=== PATIENT | male | born 1970 | race Caucasian/White ===

== ENCOUNTER → 2019-08-06 14:43 | Outpatient (CLI) | payer MEDICAID, SELFPAY | PROVIDERS: PCP Family Medicine; Visit Provider Family Medicine | DX: R00.1 Bradycardia, unspecified (principal) | CPT/HCPCS: 93225; 93226 ==

== ENCOUNTER → 2019-12-07 08:41 | Outpatient (CLI) | payer OTHER, SELFPAY ==
--- NOTE | 2019-12-07 08:49 | US_ITS ---
PROCEDURE: US ABDOMEN LIMITED CLINICAL INDICATION: RUQ, DYSPEPSIA Right upper quadrant pain, heartburn COMPARISON: No exams were available for comparison FINDINGS: PANCREAS: Unremarkable. No obvious mass or abnormal fluid collection. No ductal dilatation LIVER: No focal liver lesions demonstrated. Homogeneous echogenicity. No intrahepatic biliary ductal dilatation evident. There is appropriate direction of blood flow within a non dilated portal vein RIGHT KIDNEY: Unremarkable. Normal size and echogenicity. No hydronephrosis GALLBLADDER: No gallstones, gallbladder wall thickening, pericholecystic fluid, or biliary dilatation. IMPRESSION: Unremarkable abdominal ultrasound Dictated by: Evan Stallworth MD 12/07/2019 10:39 Electronically signed by Evan Stallworth MD in [place] 12/07/2019 10:39
== END ==
PROVIDERS: PCP Family Medicine; Visit Provider Nurse Practitioner Family
DX: R10.11 Right upper quadrant pain (principal); R10.13 Epigastric pain
CPT/HCPCS: 76705

== ENCOUNTER → 2020-01-09 10:06 | Outpatient (CLI) | payer OTHER, SELFPAY ==
--- NOTE | 2020-01-09 10:11 | NM_ITS ---
PROCEDURE: NM HEPATOBILIARY W PHARM CLINICAL INDICATION: RUQ PAIN COMPARISON: No exams were available for comparison TECHNIQUE: DOSE: 8.1 millicurie technetium 99 M Choletec administration, 2 micrograms CCK. FINDINGS: Homogeneous activity is present within the hepatic parenchyma. Activity is present in the gallbladder by 10 minutes. Activity is present in the small bowel by 40 minutes. The gallbladder ejection fraction is calculated to be 32 percent. The patient reported mild right upper quadrant pain with CCK administration. IMPRESSION: No evidence of cholecystitis. Gallbladder dysfunction with abnormally low ejection fraction at 32 percent and elicitation of abdominal pain with CCK administration. Dictated by: Everardo Maher 01/09/2020 14:35 Electronically signed by Everardo Maher in [place] 01/09/2020 14:35
== END ==
PROVIDERS: PCP Family Medicine; Visit Provider Family Medicine
DX: R10.11 Right upper quadrant pain (principal)
CPT/HCPCS: 78227; A9537; J2805

== ENCOUNTER → 2020-03-24 07:46 | Outpatient (CLI) | payer OTHER, SELFPAY ==
[2020-03-24 09:12] LABS: Basophils # 0.1 K/mm3 (0-0.2); Basophils % 0.9 % (0.1-2.0); Eosinophils # 0.2 K/mm3 (0.0-0.4); Eosinophils % 2.6 % (0.1-12.0); Hemoglobin 13.4 g/dL (14.1-18.0); Lymphocytes # 3.2 K/mm3 (0.7-4.5); Lymphocytes % 43.9 % (10-50); Mean Corpuscular HGB Conc 33.6 g/dL (31.8-35.4); Mean Corpuscular Hemoglobin 30.1 pg (27.0-31.2); Mean Corpuscular Volume 89.6 fl (80-94); Mean Platelet Volume 9.4 fl (7.4-10.4); Monocytes # 0.4 K/mm3 (0.1-1.0); Monocytes % 4.9 % (1.7-9.3); Neutrophils # 3.4 K/mm3 (1.8-7.8); Neutrophils % 47.8 % (37.0-80.0); Platelet Count 169 K/mm3 (142-424); Red Blood Count 4.47 M/mm3 (4.60-6.20); Red Cell Distribution Width 12.8 % (11.5-17.5); White Blood Count 7.2 K/mm3 (4.8-10.8)
[2020-03-24 10:40] LABS: Alanine Aminotransferase 28 U/L (12-78); Albumin Level 4.4 g/dl (3.5-5.0); Albumin/Globulin Ratio 1.4 (1.1-1.8); Alkaline Phosphatase 65 U/L (38-126); Anion Gap 7.7 mEq/L (5-15); Aspartate Amino Transferase 30 U/L (17-59); Bilirubin,Total 0.4 mg/dl (0.2-1.3); Blood Urea Nitrogen 19 mg/dl (9-20); Calcium 9.3 mg/dl (8.4-10.2); Carbon Dioxide 30 mmol/L (22.0-30.0); Chloride 102 mmol/L (98-107); Estimated Glomerular Filt Rate 79 ml/min (>60); GFR (African American) 96 ML/MIN (>60); Globulin 3.1 g/dL (1.3-3.2); Glucose 99 mg/dl (74-100); Potassium 4.7 mmoL/L (3.5-5.1); Sodium 135 mmol/L (136-145); Total Protein,Serum 7.5 g/dl (6.3-8.2)
[2020-03-25 08:54] LABS: Covid-19 Nasal PCR Sendout Lex NOT DETECTED
--- NOTE | 2020-03-25 10:00 | PC.NURSE ---
0953-pt and Benito RN notifed of negative COVID 19 results.
== END ==
PROVIDERS: Visit Provider Surgery
DX: K82.9 Disease of gallbladder, unspecified (principal); Z03.818 Encounter for observation for suspected exposure to other biological agents ruled out
CPT/HCPCS: 36415; 80053; 85025; U0003

== ENCOUNTER 2020-03-26 06:06 | Day surgery (SDC) | payer OTHER, SELFPAY ==
--- NOTE | 2020-03-21 14:21 | SUR.PREOP ---
03/21/20 @ 1421---PHONE CALL MADE TO PATIENT. PATIENT UNDERSTANDS THAT LAB WORK AND COVID-19 TESTING NEEDS TO BE COMPLETED ON 03/24/20 BEFORE 12PM. PATIENT UNDERSTANDS IF LAB WORK AND COVID-19 TESTS ARE NOT COMPLETED BY 12PM ON THAT DATE, THE SURGERY SCHEDULED WILL BE CANCELLED AND RESCHEDULED FOR ANOTHER TIME.
[2020-03-25 08:48] VITALS: BMI 33.9
[2020-03-26] VITALS (13 sets, daily range): BP systolic 89–129; BP diastolic 51–79; PULSE 49–63; RESP 12–18; TEMP 36.2–43; O2SAT 94–99
--- NOTE | 2020-03-26 07:44 | P.PN_ITS ---
[facility] Anesthesia Checklist - Structural Data Admitted From: Home Planned Operative Procedure/s: tramaine stovall Consent for Planned Operative Procedure(s) Verified: Yes - Additional verifications Anesthesia Reactions: No Hx Blood Transfusions: No Blood Transfusion Reaction: No - Airway Assessment C-Spine Mobility Assessed: Yes TMJ Mobility Assessed: Yes Dentition: Good Dentition - Neurological Assessment Level of Consciousness: Awake, Alert, Appropriate - Anesthesia Plan Anesthesia Risk discussed: Yes Anesthesia Plan: Verified ASA Class: I Anesthesia Type: General [facility] History I have reviewed the patient's past medical history: Yes 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 No: Pacemaker Amputation: No Fractures: No - *Social History Educational Level: Completed GED/General Educational Development Smoking Status: Never smoker Alcohol Intake: current Alcohol Intake Frequency:: a few times a month Substance Use Type: denies use *Occupational Status:: employed Housing: house Household Members: spouse *Travel in the last 8 weeks: None Family Hx:: No significant family history
--- NOTE | 2020-03-26 08:20 | HMH.OPNOTE ---
Date of procedure: 03/26/20 Pre-op Diagnosis:: Gallbladder disease Post-op Diagnosis:: Same Procedure performed:: Laparoscopic cholecystectomy Surgeon:: Isauro Sewell MD PRINCIPAL CONSULTING ENGINEER:: Davis Mittal Anesthesia: GETA Estimated blood loss (mL): 15 Clinical Note:: Patient is a 49-year-old white male referred by Dr. Judge for gallbladder. He states that he has had some symptoms for approximately 2 years. He describes pain in the right thoracoabdominal area. It is occasionally sharp. It is quite uncomfortable and significant when he has an attack . He did undergo cardiac work-up which was unremarkable. The symptoms have often occurred sporadically. They have also occurred postprandially. He states that foods such as iced mocha and birthday cake from the supermarket have been quite severe. He has had some postprandial diarrhea. The attacks have been more frequent. He states that over the holidays he was talking with his cousin who had similar symptoms and had significant gallbladder issue. Patient underwent ultrasound which was negative for gallstones. He recently had HIDA scan which revealed diminished ejection fraction of 32% with CCK. He had exact severe reproduction of his symptoms with CCK injection. He was sent for surgical consultation. Certainly his symptoms given the nature and character as well as the findings on HIDA scan and correlation of symptoms to CCK injection are likely from his gallbladder. I discussed the options with the patient. He would like to pursue cholecystectomy. Of note, the patient does state that he had been taking prescription antacids but this caused constipation. He had tried [id number] Rolaids for which he was taken a significant amount and noticed no appreciable relief. Operative findings:: Thickened gallbladder Operative note:: Patient was taken to the operating room. He was given preoperative intravenous antibiotics. In the operating room he was placed in a supine position. General anesthesia was induced via endotracheal tube. His abdomen was prepped and draped in the standard surgical fashion. Subumbilical skin incision was made and dissection was carried down to the fascia which was rather deep. While performing abdominal wall lift Veress needle was inserted and CO2 pneumoperitoneum was achieved to 15 mmHg. 11 mm optical trocar was inserted at the umbilicus. Patient was positioned in reverse Trendelenburg left side down. A couple of 5 mm trochars were inserted in the right upper abdomen. 10 mm trocar was inserted in the epigastrium. Gallbladder was grasped retracted anteriorly and superiorly over the dome of the liver. Gallbladder appeared to be thickened. There was some fatty infiltration around the gallbladder. Blunt dissection was carried out at the neck of the gallbladder bluntly incising the visceral peritoneum. Blunt dissection was carried out identifying the cystic duct and cystic artery. Cystic duct was isolated, multiply clipped, and divided. Cystic artery was carefully coagulated with FREDDY ultrasonic harmonic danny and divided. The gallbladder was dissected free from the liver in a retrograde fashion using FREDDY ultrasonic harmonic danny. There was a small amount of unavoidable spillage of bile during the dissection process which was suctioned free. Gallbladder was placed within an Endo Catch retrieval device and removed from the peritoneal cavity via the umbilical trocar site. Gallbladder fossa and perihepatic space were irrigated and aspirated until clear. There appeared to be good hemostasis. Trochars were removed as CO2 pneumoperitoneum was evacuated. Fascia at the umbilicus was closed with a couple of 0 Vicryl sutures. Local anesthetic was infiltrated. Skin incisions were closed with 4-0 Monocryl in a subcuticular fashion. Steri-Strips and dressings were applied. Condition: stable Disposition: PACU Complications:: None immediately apparent
--- NOTE | 2020-03-26 08:29 | HMH.ANESI ---
[facility] Anesthesia Record Part I Intake, IV Amount: 1,500 Estimated blood loss (mL): 0 Urine output (mL): 0 Blood Pressure: 128/79 SaO2: 94 Pulse Rate: 61 Respiratory Rate: 12 Temperature: 98.6 F Patient is:: Drowsy, Stable Stable to PACU at:: 08:25
--- NOTE | 2020-03-27 10:39 | P.PN_ITS ---
[facility] Anesthesia Record Part II Discharge Time: 08:55 Destination: [facility] PACU nurse assessment reviewed?: Yes Patient Condition:: Good Anesthesia Complications:: None Swallowing reflex intact?: Yes Cyanosis?: No Blood Pressure: 89/55 Pulse Rate: 63 Temperature: 97.8 F Mental Status: Alert & Oriented Pain level:: 0 Nausea and/or vomitting:: None Intake, IV Amount: 1,500
[2020-03-27 10:41] VITALS: BP 89/55; PULSE 63; TEMP 36.6
== END 2020-03-26 09:35 | disposition home or self-care (01) ==
LOC: OR 06:07
PROVIDERS: PCP Family Medicine; Visit Provider Surgery
PROC: 0FT44ZZ Resection of Gallbladder, Percutaneous Endoscopic Approach (ICD-10-PCS; CPT 47562; principal; 2020-03-26 07:30)
DX: K82.9 Disease of gallbladder, unspecified (principal)
CPT/HCPCS: 47562; 96374; J0131; J2405; J2710

== ENCOUNTER 2021-06-12 21:34 | Emergency (ER) | payer OTHER, SELFPAY ==
[2021-06-12 21:35] VITALS: BP 110/67; PULSE 60; RESP 18; TEMP 36.7; O2SAT 98; BMI 31.3
[2021-06-12 22:00] LABS: Microscopic, Urine URINE MICROSCOPIC (MICROSCOPIC)
[2021-06-12 22:01] LABS: Appearance,Urine CLEAR (Clear); Bilirubin,Urine Negative (Negative); Blood, Urine Negative (Negative); Color,Urine YELLOW (Yellow); Glucose,Urine (UA) Negative (Negative); Ketones,Urine Negative (Negative); Leukocyte Esterase,Urine Negative (Negative); Nitrate,Urine Negative (Negative); Protein,Urine Negative (Negative)
--- NOTE | 2021-06-12 22:01 | CT_ITS ---
PROCEDURE INFORMATION: Exam: CT Abdomen And Pelvis With Contrast Exam date and time: 06/12/2021 10:01 PM Age: 51 years old Clinical indication: Abdominal pain; Prior surgery; Surgery date: 6+ months; Surgery type: Gallbladder; Patient HX: Epigastric pain for 2 hrs with some nausea; Additional info: Abd pain TECHNIQUE: Imaging protocol: Computed tomography of the abdomen and pelvis with contrast. Radiation optimization: All CT scans at this facility use at least one of these dose optimization techniques: automated exposure control; mA and/or kV adjustment per patient size (includes targeted exams where dose is matched to clinical indication); or iterative reconstruction. Contrast material: ISOVUE; Contrast volume: 75 ml; Contrast route: IV; COMPARISON: US ABDOMEN LIMITED 12/07/2019 8:57 AM FINDINGS: Liver: Well-circumscribed or mm hypoattenuating focus in the right hepatic lobe, image 20 series 3 too small to otherwise classify but likely related to cyst or hemangioma. Gallbladder and bile ducts: The patient is status post cholecystectomy. Pancreas: No acute findings, focal abnormality or ductal dilation. Spleen: No splenomegaly or focal abnormality. Adrenal glands: Normal. No mass. Kidneys and ureters: Simple appearing 1.7 cm right renal cyst and nonenhancing 9 mm cyst for which no further follow-up should be necessary. Kidneys enhance and excrete contrast normally. No obstructive uropathy. Stomach and bowel: No pathologically dilated loops of bowel.There are several proximal and mid small bowel loops with diffuse wall thickening versus simple nondistention. Appendix: No evidence of appendicitis. Intraperitoneal space: No free air. No significant fluid collection. Vasculature: No abdominal aortic aneurysm. Lymph nodes: There are multiple nonspecific nonpathologic but prominent lymph nodes in the mesentery. There are no mesenteric lymph nodes of pathologic dimensions. Urinary bladder: Unremarkable as visualized. Reproductive: Unremarkable as visualized. Bones/joints: No acute fracture. Soft tissues: No acute findings. IMPRESSION: 1. Proximal and mid small bowel loops with diffuse wall thickening versus simple nondistention. Correlate for possible enteritis. 2. Otherwise no acute findings in the abdomen pelvis. COMMENTS: Consistent with the [place]'s Incidental Findings Committee white paper (J Am Brandon Radiol 2018): Any incidental renal lesion less than 1 cm or classified as too small to characterize, or any incidental cystic renal lesion characterized as simple-appearing, is likely benign. No follow-up imaging is recommended for these lesions per consensus recommendations based on imaging criteria.
--- NOTE | 2021-06-12 22:02 | ECG_ITS ---
APPROVED REPORT Exam: Resting ECG HR:50 bpm ECG Measurements Heart Rate 50 AXES IN 148 P 41 QRSd 92 QRS 30 QT 470 T 57 QTc 428 Conclusion Sinus bradycardia Otherwise normal ECG Electronically signed by : Ang Terrazas, 06/13/2021 15:16:43
[2021-06-12 22:03] LABS: Basophils # 0.1 K/mm3 (0-0.2); Basophils % 0.6 % (0.1-2.0); Eosinophils # 0.3 K/mm3 (0.0-0.4); Eosinophils % 2.5 % (0.1-12.0); Hematocrit 40.6 % (42.0-52.0); Hemoglobin 13.7 g/dL (14.1-18.0); Lymphocytes # 4.7 K/mm3 (0.7-4.5); Lymphocytes % 47.6 % (10-50); Mean Corpuscular HGB Conc 33.7 g/dL (31.8-35.4); Mean Corpuscular Hemoglobin 30.1 pg (27.0-31.2); Mean Corpuscular Volume 89.4 fl (80-94); Monocytes # 0.5 K/mm3 (0.1-1.0); Monocytes % 4.7 % (1.7-9.3); Neutrophils # 4.4 K/mm3 (1.8-7.8); Neutrophils % 44.7 % (37.0-80.0); Platelet Count 195 K/mm3 (142-424); Red Blood Count 4.54 M/mm3 (4.60-6.20); Red Cell Distribution Width 13.7 % (11.5-17.5); White Blood Count 9.9 K/mm3 (4.8-10.8)
[2021-06-12 22:07] LABS: Squamous Epithelial Cell,Urine Occasional #/hpf (0-5); WBC,Urine Occasional #/hpf (0-3)
--- NOTE | 2021-06-12 22:07 | HMH.EDNVD ---
ED Disposition Clinical Impression: Abdominal pain Qualifiers: Abdominal location: epigastric Qualified Code(s): R10.13 - Epigastric pain Disposition: Home, Self-Care Condition on Discharge: Good Instructions: DI for Acute Abdominal Pain Additional Instructions: see pcp for follow up and recheck if any issues Referrals: Ang Judge MD [Primary Care Provider] - - Critical Care Critical Care Time: No Attestation: On 06/12/21, the high probability of a clinically significant, sudden or life threatening deterioration of the following system(s) required my full and direct attention, intervention and personal management. The time I documented below is in addition to time spent performing reported procedures but includes the following listed in this critical care notation. Medical Decision Making - Medical Records Medical records reviewed: Yes: I reviewed the patient's medical records. - Italo Inquiry Pt receiving controlled substance: No Vital Signs: 06/12/21 21:35 06/12/21 23:06 Temperature 98.1 F Temperature Source Oral Pulse Rate 52 L Pulse Rate [Right] 60 Respiratory Rate 18 16 Blood Pressure 118/70 Blood Pressure [Right Arm] 110/67 Blood Pressure Mean [Right Arm] 81 Blood Pressure Source Manual Cuff/ Doppler 02 Sat by Pulse Oximetry 98 98 - Lab Data Lab results reviewed: Yes: I reviewed the patient's lab results. Lab Results 06/12/21 21:45: Urine Color Yellow, Urine Appearance Clear, Urine pH 7.0, Ur Specific Lisco 1.020, Urine Protein Negative, Urine Glucose (UA) Negative, Urine Ketones Negative, Urine Blood Negative, Urine Nitrate Negative, Urine Bilirubin Negative, Urine Urobilinogen 1.0, Ur Leukocyte Esterase Negative, Urine RBC None, Urine WBC Occasional, Ur Squamous Epith Cells Occasional, Urine Bacteria None 06/12/21 21:45: WBC 9.9, RBC 4.54 L, Hgb 13.7 L, Hct 40.6 L, MCV 89.4, MCH 30.1, MCHC 33.7, RDW 13.7, Plt Count 195, MPV 9.0, Neut % (Auto) 44.7, Lymph % (Auto) 47.6, Rowan % (Auto) 4.7, Eos % (Auto) 2.5, Baso % (Auto) 0.6, Neut # (Auto) 4.4, Lymph # (Auto) 4.7 H, Rowan # (Auto) 0.5, Eos # (Auto) 0.3, Baso # (Auto) 0.1, ESR 19 H 06/12/21 21:45: Sodium 141, Potassium 3.9, Chloride 104, Carbon Dioxide 30, Anion Gap 10.9, BUN 15, Creatinine 0.90, Estimated Creat Clear 126, Estimated GFR 89, Est GFR ( Amer) 108, Glucose 97, Calcium 8.7, Total Bilirubin 0.4, AST 41, ALT 37, Alkaline Phosphatase 79, Troponin I < 0.01, C-Reactive Protein 7.2 H, Total Protein 7.6, Albumin 4.2, Globulin 3.4 H, Albumin/Globulin Ratio 1.2, Amylase 102, Lipase 276, Procalcitonin 0.045 06/13/21 00:00: Troponin I < 0.01 Result diagrams: 06/12/21 21:45 06/12/21 21:45 Orders (Tests/Meds): ED MEDICATIONS Generic Name Dose Route Start Last Admin Trade Name Freq PRN Reason Stop Dose Admin Sodium Chloride 1,000 mls @ 999 mls/hr 06/12/21 22:00 06/12/21 21:56 Sod Chlor 0.9% 1000ml Bag IV 06/12/21 23:00 999 mls/hr .Q1H1M MICHELLE Administration Sodium Chloride 8 ml 06/12/21 21:53 Sodium Chloride 0.9% 10ml Vial IV 07/12/21 21:52 NEEDED PRN dilute pepcid Discontinued Medications Generic Name Dose Route Start Last Admin Trade Name Freq PRN Reason Stop Dose Admin Famotidine 20 mg 06/12/21 21:53 06/12/21 21:56 Famotidine 20mg/2ml Vial IV 06/12/21 21:54 20 mg ONCE ONE Administration Iopamidol 75 ml 06/12/21 22:47 06/12/21 22:48 Iopamidol-370 (76%);100ml Bottle IV 06/12/21 22:48 75 ml ONCE ONE Administration Ketorolac Tromethamine 30 mg 06/12/21 21:53 06/12/21 21:56 Ketorolac 30mg/Ml Vial IV 06/12/21 21:54 30 mg ONCE ONE Administration Metoclopramide HCl 10 mg 06/12/21 21:53 07/23/21 21:56 Metoclopramide Hcl 10mg/2ml Vial IVP 06/12/21 21:54 10 mg ONCE ONE Administration Ondansetron HCl 4 mg 06/12/21 21:53 06/12/21 21:56 Ondansetron 4mg/2ml Vial IV 06/12/21 21:54 4 mg ONCE ONE Administration Sodium Chloride 10 ml 07
--- NOTE | 2021-06-12 22:09 | XR_ITS ---
PROCEDURE INFORMATION: Exam: XR Chest Exam date and time: 06/12/2021 10:09 PM Age: 51 years old Clinical indication: Patient HX: Epigastric pain, nonsmoker; Additional info: Abd pain TECHNIQUE: Imaging protocol: XR of the chest. Views: 2 views. COMPARISON: CR CXR1 CHEST-PORTABLE 01/06/2016 8:40 PM FINDINGS: Lungs: No acute findings or consolidation. Pleural spaces: No pleural effusion. No pneumothorax. Heart/Mediastinum: No acute findings or cardiomegaly. Bones/joints: No acute findings. IMPRESSION: No acute cardiopulmonary findings.
[2021-06-12 22:12] LABS: Alanine Aminotransferase 37 U/L (12-78); Albumin Level 4.2 g/dl (3.5-5.0); Albumin/Globulin Ratio 1.2 (1.1-1.8); Alkaline Phosphatase 79 U/L (38-126); Amylase 102 U/L (30-110); Anion Gap 10.9 mEq/L (5-15); Aspartate Amino Transferase 41 U/L (17-59); Bilirubin,Total 0.4 mg/dl (0.2-1.3); Blood Urea Nitrogen 15 mg/dl (9-20); Calcium 8.7 mg/dl (8.4-10.2); Carbon Dioxide 30 mmol/L (22.0-30.0); Chloride 104 mmol/L (98-107); Creatinine Clearance Estimated 126 mL/min (50-200); Estimated Glomerular Filt Rate 89 ml/min (>60); GFR (African American) 108 ML/MIN (>60); Globulin 3.4 g/dL (1.3-3.2); Glucose 97 mg/dl (74-100); Lipase 276 U/L (23-300); Potassium 3.9 mmoL/L (3.5-5.1); Sodium 141 mmol/L (136-145); Total Protein,Serum 7.6 g/dl (6.3-8.2)
[2021-06-12 22:17] LABS: C-Reactive Protein 7.2 mg/L (0-4)
[2021-06-12 22:26] LABS: Troponin I < 0.01 ng/ml (0.00-0.034)
[2021-06-12 22:27] LABS: Erythrocyte Sedimentation Rate 19 mm/hr (0-15)
[2021-06-12 22:31] LABS: Procalcitonin 0.045 ng/mL (0.0-2.0)
[2021-06-12 23:06] VITALS: BP 118/70; PULSE 52; RESP 16; O2SAT 98
[2021-06-13 00:36] LABS: Troponin I < 0.01 ng/ml (0.00-0.034)
[2021-06-13 00:54] VITALS: BP 126/72; PULSE 61; RESP 18; TEMP 36.9; O2SAT 98
== END 2021-06-13 00:57 | disposition home or self-care (01) ==
PROVIDERS: Emergency Provider Emergency Medicine; PCP Family Medicine
DX: R10.13 Epigastric pain (principal); R11.0 Nausea
CPT/HCPCS: 71046; 74177; 80053; 81001; 82150; 83690; 84145; 84484; 85025; 85651; 86140; 93005; 96365; 96375; 99283; J2405; Q9967

== ENCOUNTER 2022-08-17 17:17 | Day surgery (SDC) | payer OTHER, SELFPAY ==
[2022-08-17] VITALS (20 sets, daily range): BP systolic 95–132; BP diastolic 58–81; PULSE 46–66; RESP 12–20; TEMP 36.1–43; O2SAT 95–100; BMI 31.3
--- NOTE | 2022-08-17 18:02 | CT_ITS ---
PROCEDURE INFORMATION: Exam: CT Abdomen And Pelvis With Contrast Exam date and time: 08/17/2022 6:02 PM Age: 52 years old Clinical indication: Abdominal pain; Localized; Right lower quadrant (rlq); Additional info: Right lower abdominal pain TECHNIQUE: Imaging protocol: Computed tomography of the abdomen and pelvis with contrast. Radiation optimization: All CT scans at this facility use at least one of these dose optimization techniques: automated exposure control; mA and/or kV adjustment per patient size (includes targeted exams where dose is matched to clinical indication); or iterative reconstruction. Contrast material: ISOVUE; Contrast volume: 75 ml; Contrast route: IV; COMPARISON: CT ABDOMEN PELVIS W CON 06/12/2021 10:23 PM FINDINGS: Lungs: No acute findings in the visualized lower lungs. No consolidation. Liver: A tiny 5 mm chronic hypoattenuating posterior right liver lesion series 3, image 21, no change compared with 06/12/2021 series 3, image 20, most likely cyst, but too small to accurately characterize. No suspicious mass. No hepatomegaly. Gallbladder and bile ducts: Cholecystectomy clips. No biliary dilatation. Pancreas: The pancreas is normal. Spleen: The spleen is normal. Adrenal glands: The adrenal glands are normal. Kidneys and ureters: Approximate 1.9 cm posterior-upper right renal cortical cystic lesion with HU density of 11, and simple Bosniak 1 appearance. Some other possible smaller subcentimeter likely cystic lesions too small to accurately characterize. No suspicious solid mass requiring follow-up. No hydronephrosis, hydroureter, or calcified obstructing ureteral stones. Stomach and bowel: No acute findings in the stomach.There is no evidence of intestinal perforation or obstruction. There are some fluid-filled distal small bowel loops with scattered air-fluid levels, but no dilated loops or mucosal thickening. Minimal diverticulosis coli, no CT findings of acute diverticulitis. Appendix: Thickened, edematous appearance of the appendix. Proximal appendix measures over 11 mm diameter series 3, image 73 with slightly thickened edematous appearing wall. Minimal periappendiceal soft tissue stranding. See coronal images 30-36. No periappendiceal fluid collection or extraluminal gas bubbles. No calcified appendicolith. Findings suspicious for early acute appendicitis. Intraperitoneal space: There is no free intraperitoneal air. There is no significant free intraperitoneal fluid. Vasculature: There is no aortic aneurysm. No portal venous gas. Lymph nodes: No significantly enlarged lymph nodes by short axis criteria. Urinary bladder: The bladder is normal. Reproductive: The prostate and seminal vesicles are normal. Bones/joints: There are spinal degenerative changes, with multilevel disc narrrowing and spondylosis. Some bridging anterior syndesmophytes in the lower thoracic spine. Mild lower lumbar facet arthropathy. No acute appearing fracture or high-grade listhesis, as visualized. Mild hip degenerative changes. Soft tissues: There are no soft tissue masses or fluid collections. IMPRESSION: 1. Findings suspicious for acute appendicitis. Mildly swollen edematous-appearing appendix up to 11 mm diameter with slight periappendiceal soft tissue stranding. No periappendiceal fluid collection or extraluminal gas bubbles. 2. Distal small intestinal air-fluid levels, which could be slight ileus or enteritis.There is no evidence of intestinal perforation or obstruction. 3. Additional nonemergency and chronic findings as above, including simple appearing renal cortical cystic lesions requiring no follow-up per ACR g
[2022-08-17 18:04] LABS: Chloride 98 mmol/L (98-107); Potassium 4.4 mmoL/L (3.5-5.1); Sodium 139 mmol/L (136-145)
[2022-08-17 18:06] LABS: Blood Urea Nitrogen 12 mg/dl (9-20); Creatinine Clearance Estimated 128 mL/min (50-200); Estimated Glomerular Filt Rate 89 ml/min (>60); GFR (African American) 108 ML/MIN (>60)
[2022-08-17 18:07] LABS: Alanine Aminotransferase 30 U/L (12-78); Albumin Level 4.6 g/dl (3.5-5.0); Albumin/Globulin Ratio 1.2 (1.1-1.8); Alkaline Phosphatase 64 U/L (38-126); Anion Gap 15.4 mEq/L (5-15); Aspartate Amino Transferase 42 U/L (17-59); Basophils # 0.1 K/mm3 (0-0.2); Bilirubin,Total 0.4 mg/dl (0.2-1.3); Carbon Dioxide 30 mmol/L (22.0-30.0); Eosinophils # 0.2 K/mm3 (0.0-0.4); Globulin 3.8 g/dL (1.3-3.2); Glucose 89 mg/dl (74-100); Hematocrit 44.8 % (42.0-52.0); Hemoglobin 14.6 g/dL (14.1-18.0); Lymphocytes # 3.6 K/mm3 (0.7-4.5); Lymphocytes % 42.6 % (10-50); Mean Corpuscular HGB Conc 32.5 g/dL (31.8-35.4); Mean Corpuscular Hemoglobin 30.4 pg (27.0-31.2); Mean Corpuscular Volume 93.4 fl (80-94); Monocytes # 0.4 K/mm3 (0.1-1.0); Monocytes % 4.6 % (1.7-9.3); Neutrophils # 4.2 K/mm3 (1.8-7.8); Neutrophils % 49.8 % (37.0-80.0); Platelet Count 212 K/mm3 (142-424); Red Blood Count 4.79 M/mm3 (4.60-6.20); Red Cell Distribution Width 13.4 % (11.5-17.5); Total Protein,Serum 8.4 g/dl (6.3-8.2); White Blood Count 8.5 K/mm3 (4.8-10.8)
[2022-08-17 18:11] LABS: Lipase 96 U/L (23-300)
--- NOTE | 2022-08-17 18:24 | PC.NURSE ---
pt given urinal to collect urinal sample
--- NOTE | 2022-08-17 18:28 | HMH.EDABDPAI ---
Discharge Plan Disposition Patient Disposition: Still a Patient Condition: Fair Chief Complaint: Abdominal Pain Prescriptions Prescriptions: No Action peg 3350-electrolytes [Golytely] 236-22.74-6.74 -5.86 gram recon soln 240 ml PO Q10M Qty: 4000 0RF Rx Instructions: until fecal effluent is clear Referrals Follow up/Referrals: Maggie Lino MD [Primary Care Provider] - See instructions Clinical Impressions Clinical Impression: Acute appendicitis Instructions Patient Instructions: DI for Acute Abdominal Pain Discharge ED Provider: Elroy Garcia Abdominal Pain HPI General Chief Complaint: Abdominal Pain Stated Complaint: sent from [facility] for apendix Time Seen by Provider: 08/17/22 18:00 Mode of Arrival: Ambulatory Source of Information: Patient Limitations: No Limitations Description of Symptoms (Recalled from ER Triage Doc. by RN): c/o lower abd pain since Tuesday, denies n/v/d, nothing makes it better or worse History of Present Illness complaint: abdominal pain Onset (ago): day(s) (4) Consistency: constant Location: RLQ Severity: moderate Severity scale (1-10): 6 Quality: cramping and aching Radiation: none Migration to: no migration Relieving factors: nothing Exacerbating factors: nothing Associated symptoms: nausea Related Data Previous Rx's Medication Instructions Recorded peg 3350-electrolytes 236 240 ml PO Q10M #4,000 mL 07/06/22 gram-22.74 gram-6.74 gram-5.86 gram solution (Golytely) Allergies Allergy/AdvReac Type Severity Reaction Status Date / Time No Known Allergies Allergy Verified 06/12/21 22:08 [facility] Social History Smoking Status: Never smoker alcohol intake: never substance use type: denies use current occupational status: employed Travel in the last 8 weeks: None household members: spouse housing: house current occupation: [employer] current occupational exposures/hazards: No caffeine: Yes ROS Obtained: Yes All systems reviewed & no additional complaints except as documented Constitutional Constitutional: Denies chills, Denies fever(s) and Denies headache(s) ENT Ears, Nose, Mouth, and Throat: Denies headache(s) Cardiovascular Cardiovascular: Denies chest pain and Denies dyspnea Respiratory Respiratory: Denies dyspnea Gastrointestinal Gastrointestingal: Reports abdominal pain and nausea Integumentary/Breasts Skin/Breast: Denies rash Neurologic Neurologic: Denies headache(s) Physical Exam General General appearance: alert and in no apparent distress ENT ENT exam: Present normal exam and normal oropharynx Respiratory Respiratory exam: Present normal lung sounds bilaterally; Absent respiratory distress Cardiovascular Cardiovascular exam: Present regular rate and normal rhythm Abdominal Exam Abdominal exam: Present soft; Absent distention, guarding, rebound, rigidity or mass Abdominal tenderness: Present RLQ and moderate Extremities Exam Extremities exam: Present normal inspection and full ROM; Absent tenderness Neurological Exam Neurological exam: Present alert and oriented X3 Skin Skin exam: Present warm; Absent rash Medical Decision Making Medical Records Medical records reviewed: Yes I reviewed the patient's medical records. Italo Inquiry Pt receiving controlled substance: Yes Italo was queried for this patient: No Reason not queried -: Italo system downtime Risks and benefits of using a controlled substance: were discussed with pt by me Vital Signs: 08/17/22 17:18 08/17/22 18:24 08/17/22 18:30 Temperature 97.7 F Temperature Source Oral Pulse Rate 53 L 66 Pulse Rate [Left Radial] 47 L Respiratory Rate 20 18 Blood Pressure 122/76 132/75 Blood Pressure [Right Arm] 123/75 Blood Pressure Mean 87 86 Blood Pressure Mean [Right Arm] 91 Blood Pressure Source [Right Arm] Automatic Cuff Blood Pressure Position [Right Arm] S
--- NOTE | 2022-08-17 18:29 | PC.NURSE ---
URINE SENT TO LAB
[2022-08-17 18:32] LABS: Microscopic, Urine URINE MICROSCOPIC (MICROSCOPIC)
[2022-08-17 18:36] LABS: Appearance,Urine CLEAR (Clear); Bilirubin,Urine Negative (Negative); Blood, Urine Negative (Negative); Color,Urine YELLOW (Yellow); Glucose,Urine (UA) Negative (Negative); Ketones,Urine Negative (Negative); Leukocyte Esterase,Urine Negative (Negative); Nitrate,Urine Negative (Negative); Protein,Urine Negative (Negative); Urobilinogen,Urine 0.2 EU/dl (0.2)
[2022-08-17 18:52] LABS: WBC,Urine Occasional #/hpf (0-3)
--- NOTE | 2022-08-17 18:58 | PC.NURSE ---
called surgeon career education teacher
--- NOTE | 2022-08-17 19:00 | PC.NURSE ---
called house to get surgery team for for appendicitis
--- NOTE | 2022-08-17 19:06 | PC.NURSE ---
SPOKE WITH WILBUR CRAIG CRNA AT [address], DEVON MEREDITH, RN AT [address] AND ALISTAIR MEDRANO, MOTOR OPERATOR AT [address] TO NOTIFY OF ACUTE APPENDICITIS. INFORMED THEM DR. CROFT WANTS TO TAKE PATIENT TO SURGERY. BED ASSIGNMENT TO [facility].
--- NOTE | 2022-08-17 19:29 | PC.NURSE ---
at bedside speaking with pt
[2022-08-17 19:36] LABS: Coronavirus 19, PCR Not Detected (NotDetected); Influenza A, PCR Not Detected (NotDetected); Influenza B, PCR Not Detected (NotDetected)
--- NOTE | 2022-08-17 19:44 | PC.NURSE ---
pt to surgery
--- NOTE | 2022-08-17 20:29 | EXP.ANES.CKL ---
[facility] Social History Smoking Status: Never smoker alcohol intake: never substance use type: denies use current occupational status: employed Travel in the last 8 weeks: None household members: spouse housing: house current occupation: [employer] current occupational exposures/hazards: No caffeine: Yes [facility] Anesthesia Checklist Patient Identification Patient Identification: Arm Band Structural Data Admitted From: Emergency Dept Planned Operative Procedure/s: Laparoscopic Appendectomy Consent for Planned Operative Procedure(s) Verified: Yes Verified Documents: Surgical Consent and History and Physical NPO Status Verified Time NPO: 16:00 (1600- clear liquids, a few carrots at 1400) Additional verifications Anesthesia Reactions: No Hx Blood Transfusions: No Blood Transfusion Reaction: No Airway Assessment C-Spine Mobility Assessed: Yes TMJ Mobility Assessed: Yes Dentition: Good Dentition Neurological Assessment Level of Consciousness: Awake and Alert Anesthesia Plan Anesthesia Risk discussed: Yes Anesthesia Plan: Verified ASA Class: II (e) Anesthesia Type: General
--- NOTE | 2022-08-17 21:16 | P.PNANES_ITS ---
[facility] Anesthesia Record Part I Anesthesia Record I Intake, IV Amount: 1,100 Estimated blood loss (mL): 10 Urine output (mL): 200 Blood Products used (#): none Blood Pressure: 126/60 SaO2: 96 Pulse Rate: 52 Respiratory Rate: 16 Temperature: 97.8 F Patient is:: Drowsy and Stable Stable to PACU at:: 21:10
--- NOTE | 2022-08-17 22:10 | EXP.OP.NOTE ---
Date of procedure: 08/17/22 Pre-op Diagnosis:: Appendicitis Post-op Diagnosis:: same Procedure performed:: Laparoscopic appendectomy Surgeon:: Pradeep Mishra MD BILLBOARD POSTER HELPER:: Neil Beard Anesthesia: RAND Estimated blood loss (mL): 15 Operative findings:: inflammed, enlarged appendix Operative note:: After informed consent was obtained, the patient was taken to the operating room and placed in the supine position. General anesthesia was induced and the abdomen was prepped and draped in a sterile fashion. After infiltration with local anesthetic a supraumbilical incision was made. A Veress needle was placed in position. The abdomen was insufflated. A 12 mm optical trocar was placed in position. Under direct visualization, a 5 mm trocar was placed in the suprapubic position and an additional 5 mm trocar was placed in the left lower quadrant. The appendix was inflammed and enlarged (paticularly along the proximal and mid-portion). As the appendix was elevated the mesoappendix was dissected with harmonic danny. An Endopath 45 stapling device was then used to transect the appendix at its base. The appendix was placed in a retrieval bag and removed through the supraumbilical trocar site. The right lower quadrant and pelvis were thoroughly irrigated. No active bleeding or sign of injury was noted. Fascia at the supraumbilical trocar site was reapproximated utilizing the NeoClose device. The remaining trocars were removed. All wounds were irrigated and skin was closed with 4-0 Monocryl in a mattress fashion to facilitate hemostasis. Dressings were applied. The patient's anesthetic agents were reversed and extubation was completed prior to transfer to recovery in stable condition. Condition: stable Disposition: PACU Specimens:: appendix Complications:: no immediate
[2022-08-17 23:26] LABS: Microscopic,Cath URINE MICROSCOPIC (MICROSCOPIC)
[2022-08-17 23:27] LABS: Appearance,Urine/Cath CLEAR (Clear); Bilirubin,Cath Negative (Negative); Blood, Urine/Cath Negative (Negative); Color,Urine/Cath YELLOW (Yellow); Glucose,Urine/Cath (UA) Negative (Negative); Ketones,Urine/Cath Negative (Negative); Leukocyte Esterase,Cath Negative (Negative); Nitrate,Cath Negative (Negative); Protein,Urine/Cath Negative (Negative); Specific Gravity, Urine/Cath <= 1.005 (1.005-1.030); Urobilinogen,Cath 0.2 EU/dl (0.2)
[2022-08-18 00:04] LABS: Squamous Epithelial Ur./Cath Occasional #/hpf (0-5); WBC,Urine/Cath Occasional #/hpf (0-3)
--- NOTE | 2022-08-18 06:38 | SUR.PHASEII ---
LATE ENTRY 2239 education give to patient and regarding tylenol 3 instructions. pt and spouse informed to stop this medication when loratab from pharmacy has been picked up related to the amount of tylenol being too much if taking both. pt and spouse verbalized understanding of all education.
--- NOTE | 2022-08-18 10:17 | P.PNANES_ITS ---
[facility] Anesthesia Record Part II Anesthesia Record Part II Discharge Time: 22:14 Destination: Surgical Day Care (OP Surgery) PACU nurse assessment reviewed?: Yes Patient Condition:: Good Anesthesia Complications:: None Swallowing reflex intact?: Yes Cyanosis?: No Blood Pressure: 103/69 Pulse Rate: 46 Temperature: 97 F Mental Status: Alert & Oriented Pain level:: 3 Nausea and/or vomitting:: None Intake, IV Amount: 0
[2022-08-18 10:18] VITALS: BP 103/69; PULSE 46; TEMP 36.1
== END 2022-08-17 22:45 | disposition home or self-care (01) ==
LOC: ER 19:02 → SDC 19:45 → 2ND 19:57 → SDC 22:10
PROVIDERS: Emergency Provider Emergency Medicine; PCP Family Medicine; Visit Provider Surgery
PROC: 0DTJ4ZZ Resection of Appendix, Percutaneous Endoscopic Approach (ICD-10-PCS; CPT 44970; principal; 2022-08-17 20:00)
DX: K37 Unspecified appendicitis (principal)
CPT/HCPCS: 44970; 74177; 80053; 81001; 83690; 85025; 88304; 96374; C9803; J0696; J2405; J2710; Q9967; U0003; U0005

== ENCOUNTER → 2022-08-25 15:16 | Outpatient (CLI) | payer OTHER, SELFPAY ==
[2022-08-25 15:21] LABS: Microscopic, Urine URINE MICROSCOPIC (MICROSCOPIC)
[2022-08-25 15:52] LABS: Basophils # 0.1 K/mm3 (0-0.2); Basophils % 1.1 % (0.1-2.0); Eosinophils # 0.1 K/mm3 (0.0-0.4); Eosinophils % 1.4 % (0.1-12.0); Hemoglobin 13.8 g/dL (14.1-18.0); Lymphocytes # 3.5 K/mm3 (0.7-4.5); Lymphocytes % 38.1 % (10-50); Mean Corpuscular HGB Conc 33.5 g/dL (31.8-35.4); Mean Corpuscular Hemoglobin 30.9 pg (27.0-31.2); Mean Corpuscular Volume 92.3 fl (80-94); Mean Platelet Volume 8.9 fl (7.4-10.4); Monocytes # 0.5 K/mm3 (0.1-1.0); Monocytes % 5.4 % (1.7-9.3); Neutrophils # 4.9 K/mm3 (1.8-7.8); Platelet Count 216 K/mm3 (142-424); Red Blood Count 4.45 M/mm3 (4.60-6.20); Red Cell Distribution Width 13.1 % (11.5-17.5); White Blood Count 9.1 K/mm3 (4.8-10.8)
[2022-08-25 15:57] LABS: Appearance,Urine CLEAR (Clear); Bilirubin,Urine Negative (Negative); Blood, Urine Negative (Negative); Color,Urine YELLOW (Yellow); Glucose,Urine (UA) Negative (Negative); Ketones,Urine Negative (Negative); Leukocyte Esterase,Urine Negative (Negative); Nitrate,Urine Negative (Negative); Protein,Urine Negative (Negative); Urobilinogen,Urine 0.2 EU/dl (0.2)
[2022-08-25 16:16] LABS: Squamous Epithelial Cell,Urine Occasional #/hpf (0-5)
[2022-08-25 16:55] LABS: Chloride 97 mmol/L (98-107); Potassium 4.8 mmoL/L (3.5-5.1); Sodium 139 mmol/L (136-145)
[2022-08-25 16:58] LABS: Alanine Aminotransferase 28 U/L (12-78); Albumin Level 4.4 g/dl (3.5-5.0); Albumin/Globulin Ratio 1.3 (1.1-1.8); Alkaline Phosphatase 76 U/L (38-126); Amylase 79 U/L (30-110); Anion Gap 15.8 mEq/L (5-15); Aspartate Amino Transferase 33 U/L (17-59); Blood Urea Nitrogen 12 mg/dl (9-20); Calcium 9.1 mg/dl (8.4-10.2); Carbon Dioxide 31 mmol/L (22.0-30.0); Estimated Glomerular Filt Rate 102 ml/min (>60); GFR (African American) 123 ML/MIN (>60); Globulin 3.3 g/dL (1.3-3.2); Glucose 83 mg/dl (74-100); Lipase 214 U/L (23-300); Total Protein,Serum 7.7 g/dl (6.3-8.2)
[2022-08-25 17:23] LABS: Bilirubin,Total < 0.1 mg/dl (0.2-1.3)
== END ==
PROVIDERS: PCP Family Medicine; Visit Provider Surgery
DX: R10.9 Unspecified abdominal pain (principal)
CPT/HCPCS: 36415; 80053; 81001; 82150; 83690; 85025

== ENCOUNTER 2022-10-22 07:32 | Day surgery (SDC) | payer OTHER, SELFPAY ==
[2022-10-18 09:43] VITALS: BMI 29.4
[2022-10-22 08:01] VITALS: BP 106/60; PULSE 59; RESP 18; TEMP 36.3; O2SAT 95
--- NOTE | 2022-10-22 08:39 | P.PN_ITS ---
[facility] Disclaimer: The information contained in this section may have been updated after the patient was seen, as this information can be updated by other users. Medical History History of depression Surgical History History of appendectomy History of cholecystectomy Family History Other Family history of diabetes mellitus type II Family history of hypertension Family history of myocardial infarction Social History Smoking Status: Former smoker alcohol intake: never substance use type: denies use current occupational status: employed Travel in the last 8 weeks: Inside the [place] household members: spouse housing: house current occupation: [employer] current occupational exposures/hazards: No caffeine: Yes [facility] Anesthesia Checklist Patient Identification Patient Identification: Arm Band Structural Data Admitted From: Home Planned Operative Procedure/s: colonoscopy Consent for Planned Operative Procedure(s) Verified: Yes Verified Documents: Surgical Consent and History and Physical NPO Status Verified Time NPO: 00:00 Additional verifications Anesthesia Reactions: No Hx Blood Transfusions: No Blood Transfusion Reaction: No Airway Assessment C-Spine Mobility Assessed: Yes TMJ Mobility Assessed: Yes Dentition: Good Dentition Neurological Assessment Level of Consciousness: Awake and Alert Anesthesia Plan Anesthesia Risk discussed: Yes Anesthesia Plan: Verified ASA Class: II Anesthesia Type: MAC
[2022-10-22 08:40] VITALS: O2SAT 95
--- NOTE | 2022-10-22 09:10 | HMH.SCOPE ---
Procedure: Date: 10/22/22 Patient Date of :: 1970 Procedure Performed:: Total colonoscopy to terminal ileum with biopsies and polypectomy using biopsy forceps Indications:: 52-year-old male whom I had previously seen for cholecystectomy couple of years ago. Relatively recently he had undergone laparoscopic appendectomy with Dr. Mishra. He had been scheduled for screening colonoscopy. Patient had never had prior colonoscopy. He does state that he has some alteration between loose stools and constipation with some associated abdominal bloating. Seems to be improved when he watches his diet by eliminating simple carbs such as bread and potatoes. Performing Provider:: Isauro Sewell MD Referring Provider:: Dr. Lino Sedation:: MAC sedation Procedure:: Patient history was obtained and appropriate physical examination was performed. Patient's medications and allergies were reviewed. Informed consent was obtained after explaining the benefits, alternatives, and risks of the procedure including, but not limited to, bleeding, perforation, missed lesions, and adverse reaction to anesthesia medications. Patient was transported to endoscopy procedure room. Patient was connected to monitoring devices. Throughout the procedure the patient's blood pressure, pulse, and oxygen saturations were monitored continuously. Patient identification and planned procedure were verified by the staff. Patient was positioned in lateral decubitus position. Digital anorectal exam was performed. Variable stiffness Olympus colonoscope was inserted and advanced under direct visualization to the cecum. Adequacy of the colonic preparation was noted. The colonoscope was advanced a short distance into the terminal ileum. The colonoscope was then slowly withdrawn while carefully examining the color, texture, anatomy, and integrity of the mucosoa circumferentially. Within the rectum retroflexion was performed. Colonoscope was then withdrawn. Impression: The colonoscope was inserted via the anus and advanced to the cecum. Colonic preparation was good. Biopsies were obtained in the terminal ileum, right colon, and left colon to rule out microscopic ileitis and colitis respectively. There were some very rare minimal sigmoid diverticuli. There were a couple of tiny diminutive polyps consistent with hyperplastic polyps in the rectosigmoid removed with cold biopsy forceps Findings:: Extremely rare small diverticuli in the sigmoid colon Hyperplastic appearing rectosigmoid polyps Recommendations:: Likely repeat colonoscopy 5 years Complications:: None immediately apparent Estimated blood obtained (mL): 1
[2022-10-22 09:13] VITALS: BP 111/62; PULSE 56; RESP 18; TEMP 36.4; O2SAT 98
[2022-10-22 09:23] VITALS: BP 124/76; PULSE 57; RESP 18; O2SAT 100
[2022-10-22 09:33] VITALS: BP 103/72; PULSE 58; RESP 18; O2SAT 100
[2022-10-22 09:43] VITALS: BP 114/83; PULSE 59; RESP 18; O2SAT 98
== END 2022-10-22 09:43 | disposition home or self-care (01) ==
PROVIDERS: PCP Family Medicine; Visit Provider Surgery
PROC: 0DJD8ZZ Inspection of Lower Intestinal Tract, Via Natural or Artificial Opening Endoscopic (ICD-10-PCS; CPT 45380; principal; 2022-10-22 08:30)
DX: Z12.11 Encounter for screening for malignant neoplasm of colon (principal); K63.5 Polyp of colon; Z79.899 Other long term (current) drug therapy
CPT/HCPCS: 45380

== ENCOUNTER → 2023-05-30 13:32 | Outpatient (CLI) | payer OTHER, SELFPAY ==
--- NOTE | 2023-05-30 13:35 | CT_ITS ---
FINAL REPORT TECHNIQUE: Pre- and postcontrast images of the abdomen were performed by computed tomography. CLINICAL HISTORY: FATIGUE,SHAKINESS,SCREENING FOR DIABETES MELLITUS COMPARISON: None FINDINGS: The lung bases are clear. The liver is normal in size and attenuation. The spleen is unremarkable. The adrenals are normal. The pancreas is normal in appearance without any evidence of pancreatic mass or abnormal enhancement. Noncontrast examination fails to reveal any evidence of a renal stone. There is a 15 mm mass seen in the posterior aspect of the left kidney with a small calcification in the posterior wall. This does not have an appearance compatible with a simple cyst but is compatible with a mildly complicated cyst, Bosniak category 2. There is a 9 mm mass in the lower pole of the right kidney, that is consistent in appearance with a small renal cyst. There is no evidence of hydronephrosis or perinephric fluid collections. IMPRESSION: Normal appearing pancreas without evidence of a mass or abnormal enhancement. 15 mm mass posterior aspect of the left kidney with a small calcification in the posterior wall, compatible with a mildly complicated cyst, Bosniak category 2. A second cyst, 9 mm in diameter, in the lower pole of the right kidney is consistent with an uncomplicated renal cyst. Reviewed, Interpreted and Dictated by Isauro Caruso III, MD Transcribed by Lucie Boyle Authenticated and [facility]
== END ==
PROVIDERS: PCP Family Medicine; Visit Provider Family Medicine
DX: R53.83 Other fatigue (principal); R25.1 Tremor, unspecified; Z13.1 Encounter for screening for diabetes mellitus
CPT/HCPCS: 74170; 93225; 93226; Q9967

== ENCOUNTER → 2023-07-04 14:30 | Outpatient (CLI) | payer OTHER, SELFPAY ==
--- NOTE | 2023-07-04 14:36 | US_ITS ---
FINAL REPORT TECHNIQUE: Ultrasound images of the kidneys and bladder were obtained. CLINICAL HISTORY: RENAL CYST COMPARISON: None FINDINGS: The right kidney measures 10 cm in length. It is normal in echogenicity. There is no hydronephrosis. There is a 1.7 cm renal cyst present with calcification in the periphery, suggesting a complex cyst. This is stable since the prior CT examination of 05/30/2023. The left kidney measures 10.5 cm in length. It is normal in echogenicity. There is no hydronephrosis. IMPRESSION: 1.7 cm complicated renal cyst with calcification in the periphery, unchanged since May 30. No hydronephrosis present. Reviewed, Interpreted and Dictated by Isauro Caruso III, MD Transcribed by Lucie Boyle Authenticated and [facility]
== END ==
PROVIDERS: PCP Family Medicine; Visit Provider Urology
DX: N28.1 Cyst of kidney, acquired (principal)
CPT/HCPCS: 76770

== ENCOUNTER 2023-12-01 10:48 | Outpatient (CLI) | payer OTHER, SELFPAY ==
--- NOTE | 2023-12-01 10:52 | MR_ITS ---
FINAL REPORT CLINICAL HISTORY: SCIATICA, LUMBAR BACK PAIN, RIGHT HIP AND LEG PAIN, NO INJURY 19ML PROHANCE INJECTED COMPARISON: None FINDINGS: Multiplanar MR imaging of the lumbar spine was performed without and with contrast. On the sagittal T2-weighted images, disc degeneration is seen at multiple levels. The vertebral alignment is normal. There is no evidence of fracture. The conus is seen at approximately the L1 level and has an unremarkable appearance. A hemangioma is present in the T12 vertebral body. L1-2: An annular bulge is present with facet osteoarthropathy. There is a right foraminal disc protrusion and moderate bilateral neural foraminal narrowing. L2-3: An annular bulge is present with facet osteoarthropathy. There is moderate bilateral neural foraminal narrowing. L3-4: An annular bulge is present with facet osteoarthropathy. There is moderate bilateral neural foraminal narrowing. L4-5: An annular bulge is present. There is moderate bilateral neural foraminal narrowing. L5-S1: An annular bulge is present with facet osteoarthropathy and osteophytes. There is a right foraminal annular tear and extruded disc, which produces right lateral recess stenosis, and right S1 nerve root impingement. There is moderate bilateral neural foraminal narrowing. Contrast-enhanced imaging shows peripheral enhancement with granulation tissue surrounding the extruded disc fragment. IMPRESSION: Multilevel mild degenerative disc disease and spondylosis with areas of neural foraminal narrowing as described. Extruded right paracentral disc, with right lateral recess stenosis, and impingement of the right S1 nerve root. As described, contrast reveals peripheral enhancement with granulation tissue surrounding the extruded disc. Reviewed, Interpreted and Dictated by Isauro Caruso III, MD Transcribed by Lucie Boyle Authenticated and [facility]
[2023-12-01] MEDS: SODIUM CHLORIDE 0.9% 10ML SYR (RAD ONLY) 10 ML IV (11:35)
[2023-12-01] MEDS: GADOTERIDOL INJ 17ML SYRINGE 19 ML IV (11:35)
== END 2023-12-01 23:59 ==
LOC: RAD 10:48
PROVIDERS: PCP Family Medicine; Visit Provider Nurse Practitioner
DX: M54.30 Sciatica, unspecified side (principal); M54.50 Low back pain, unspecified
CPT/HCPCS: 72158; 76376; A9576

== ENCOUNTER 2025-06-29 11:15 | Outpatient (CLI) | payer OTHER, SELFPAY ==
[2025-06-29 20:11] LABS: Influenza A, PCR Not Detected (NotDetected); Influenza B, PCR Not Detected (NotDetected)
[2025-06-29 21:53] LABS: Coronavirus 19, PCR Detected (NotDetected)
--- OUTSIDE RECORDS SUMMARY | 2025-07-01 11:22 | XMS_ITS | Clinical Summary ---
Author Organization [facility] Address [address] [place] [address] Care Team Providers Care Patent Leather Sorter Name Role Phone Yves Lino MD Primary Care Provider [phone] Allergies No known active allergies Medications omeprazole (priLOSEC) 20 MG capsule Take 1 capsule by mouth Daily. 08/24/2023 Active Active Problems No known active problems Family History Medical History Relation Name Comments Coronary artery disease Father Relation Name Status Comments Father Social History Tobacco Use Types Packs/Day Years Used Date Smoking Tobacco: Former Cigarettes Smokeless Tobacco: Former Alcohol Use Standard Drinks/Week Comments Not Currently 2 (1 standard drink = 0.6 oz pur e alcohol) Abuse Screen Answer Date Recorded Unsafe at Home or Work/School Not on file Feels Threatened by Someone? Not on file 07/2023 Does Anyone Keep You from Co ntacting Others or Doint Things Outside the Home? Not on file 08/29/2023 Physical Sign of Abuse Present Not on file 1 Housing Stability Answer Date Recorded Current Living Arrangements Not on file 07/2023 Potentially Unsafe Housing Conditions Not on julio e 08/29/2023 Family and Community Support Answer Alvaro e Recorded Help with Day-to-Day Activities Not on file 08/29/2023 Lonely or Isolated Not on file 08/29/2023 Employment Answer Date Recorded Do you want help finding or keeping work or a rosa b? Not on file 08/29/2023 Disabilities Answer Date Recorded Concentrating, Remembering, or Making Decisions Difficulty Not on file 08/29/2023 Doing Errands Independently Difficulty Not on fi le 08/29/2023 Education Answer Date Recorded Help with school or training? Not on file Preferred Language Not on file 08/29/2023 Sex and Gender Information Value Date Recorded Sex Assigned at Not on file Legal Sex Male 12:40 PM EDT Gender Identity Not on file Sexual Orientation Not on file Last Filed Vital Signs Vital Sign Reading Time Taken Comments Blood Pressure 128/80 10/17/2023 9:24 AM EST Pulse 60 10/17/2023 9:24 AM EST Temperature - - Respiratory Rate - - Oxygen Saturation 96% 09/14/2023 9:11 AM EDT Inhaled Oxygen Concentration - - Weight 95.4 kg (210 lb 5.1 oz) 10/17/2023 9:24 A M EST Height 170.2 cm (5' 7.01 ) 10/17/2023 9:24 AM ES T Body Mass Index 32.93 10/17/2023 9:24 AM EST Plan of Treatment Health Maintenance Due Date Last Done Comments TDAP/TD VACCINES (1 - Tdap) 1990 COLOGUARD 2016 COLON CANCER SCREENING 5 YEAR SIGMOIDOSCOPY 2016 COLONOSCOPY [address]CER SCREENING 2016 [address] COLONOGRAPHY 2016 FECAL OCCULT BLOOD TEST 2016 FIT Testing (1 year) 2016 Pneumococcal Vaccine 50+ (1 of 1 - PCV) 2021 ZOSTER VACCINE (1 of 2) 2021 ANNUAL PHYSICAL 09/13/2023 HEPATITIS C SCREENING 09/13/2023 COVID-19 Vaccine (1 - 2023- season) 2024 INFLUENZA VACCINE 08/21/2025 Insurance [facility] Care Teams Patent Leather Sorter Relationship Specialty Start Date End Date Yves Lino MD [address] [place] [address] PCP - General Family Medicine 06/30/23
--- OUTSIDE RECORDS SUMMARY | 2025-07-01 11:22 | XMS_ITS | Clinical Summary ---
Author Organization [employer] ([place], [place], [place], [place]) Address [address] [place] [address] Care Team Providers Care Solar Pv Installer Name Role Phone Yves Lino MD Primary Care Provider [phone] Allergies No known active allergies Medications omeprazole (PriLOSEC) 20 MG capsule Take 1 capsule (20 mg total) by mouth daily. 02/27/2024 Active FLUoxetine (PROzac) 40 MG capsule Take 1 capsule (40 mg total) by mouth daily. 05/22/2024 Active traMADoL (ULTRAM) 50 mg tablet Take 1 tablet (50 mg total) by mouth every 6 (six) hours as needed for pain. Active oxyCODONE-aceta minophen (Percocet) 5-325 mg per tablet Take 1 tablet by mouth every 4 (four) hours as needed for pain. Max Daily Amount: 6 tablets 30 tablet 06/18/2024 Active Active Problems No known active problems Social History Tobacco Use Types Packs/Day Years Used Date Smoking Tobacco: Former Cigarettes Q uit: 05/24/2018 Smokeless Tobacco: Never Tobacco Cessation:Counseling Given: Not Answered Alcohol Use Standard Drinks/Week Comments Yes 0 (1 standard drink = 0.6 oz pur e alcohol) [facility] Answer Date Recorde d Little interest or pleasure in doing things Evangelina ral days 06/04/2024 Feeling down, depressed, or hopeless Several day s 06/04/2024 Feeling of Stress Not on file 06/04/2024 Family and Community Support Answer Alvaro e Recorded Help with Day to Day Activities Not on file 12/20/2023 Feeling Lonely or Isolated Not on file 12/20 Educational Attainment Answer Date Chris rded Speak language other than Ivorian at home Not on file 12/20/2023 Want help with school or training Not on file 12/20/2023 Substance Use Answer Date Recorded Used prescription meds for non-medical reasons N ot on file 12/20/2023 Used illegal drugs past 12 months Not on file 12/20/2023 Sex and Gender Information Value Date Recorded Sex Assigned at Not on file Legal Sex Male 3:33 PM REVENUE STAMP CUTTER Gender Identity Not on file Sexual Orientation Not on file Last Filed Vital Signs Vital Sign Reading Time Taken Comments Blood Pressure 122/79 11/08/2024 8:39 AM EST Pulse 68 11/08/2024 8:39 AM EST Temperature 35.9 C (96.6 F) 06/18/2024 4:20 PM EDT Respiratory Rate 18 06/18/2024 4:20 PM EDT Oxygen Saturation 99% 06/18/2024 4:20 PM EDT Inhaled Oxygen Concentration - - Weight 100.7 kg (222 lb) 11/08/2024 8:39 AM EST Height 170.2 cm (5' 7 ) 11/08/2024 8:39 AM EST Body Mass Index 34.77 11/08/2024 8:39 AM EST Plan of Treatment Health Maintenance Due Date Last Done Comments CT Colonography 1971 Colonoscopy 1971 Colorectal Cancer Screening 1971 FOBT/FIT 1971 Fit-DNA (Cologuard) 1971 Sigmoidoscopy 1971 Depression Screening (12+) 1983 HIV Screening 1986 Hepatitis C Screening 1989 DTAP/TDAP/TD VACCINES (1 - Tdap) 1990 Lipid Panel 2006 Pneumococcal 50+ years (1 of 1 - PCV) 2021 Shingles Vaccine (Zoster) (1 of 2) 2021 COVID-19 VACCINE (1 - season) 2024 Influenza Vaccine (#1) 2025 Tobacco Cessation Counseling and Screening (12+) 11/0811/08/2024 Insurance [employer]IE[employer] GALLAGHER [facility] Care Teams Solar Pv Installer Relationship Specialty Start Date End Date Yves Lino MD [address] [place] [id number] PCP - General Family Medicine 12/20/23
--- OUTSIDE RECORDS SUMMARY | 2025-07-01 11:22 | XMS_ITS | Referral Summary ---
Author Organization [employer] ([place], [place], [place], [place]) Address [address] [place] [address] Care Team Providers Care Addictions Counselor Assistant Name Role Phone Yves Lino MD Primary Care Provider [phone] Allergies No known active allergies Medications omeprazole [...] drink = 0.6 oz pur e alcohol) [facility] Answer Date Recorde d [...] Date Chris rded Speak language other than Sudanese at home Not on file 12/20/2023 Want help with school or training Not on file 12/20/2023 Substance Use Answer Date Recorded Used prescription meds for non-medical reasons N ot on file 12/20/2023 Used illegal drugs past 12 months Not on file 12/20/2023 Sex and Gender Information Value Date Recorded Sex Assigned at Not on file Legal Sex Male 3:33 PM DIRECTOR BIOLOGICS Gender Identity Not on file Sexual Orientation [...] 11/08/2024 8:39 AM EST Plan of Treatment Not on file Insurance [facility] Care Teams Addictions Counselor Assistant Relationship Specialty Start Date End Date Yves Lino MD [address] [place] [address] PCP - General Family Medicine 12/20/23
== END 2025-06-29 23:59 | disposition home or self-care (01) ==
LOC: LAB.DROPOF 07-01 11:16
PROVIDERS: PCP Nurse Practitioner Family; Visit Provider Nurse Practitioner Family
DX: R05.9 Cough, unspecified (principal); R68.89 Other general symptoms and signs
CPT/HCPCS: 87636